=== PATIENT | male | born 1995 | race Two or more races ===

== ENCOUNTER 2016-09-29 15:54 | Emergency (ER) | payer SELFPAY ==
[~2016-09-29 15:54] MED LIST: MOTRIN600 MG PO; ZOFRAN ODT4 MG/UDTAB PO
== END 2016-09-29 17:45 ==
LOC: EDMED 15:54
DX: S60.021A Contusion of right index finger without damage to nail, initial encounter (principal); S60.031A Contusion of right middle finger without damage to nail, initial encounter; W20.8XXA Other cause of strike by thrown, projected or falling object, initial encounter; Y93.89 Activity, other specified; Y92.019 Unspecified place in single-family (private) house as the place of occurrence of the external cause; Y99.8 Other external cause status